=== PATIENT | male | born 1970 | race Caucasian/White ===

== ENCOUNTER 2022-04-11 19:06 | Emergency (ER) | payer BC ==
[~2022-04-11] VITALS: Ht 185.4 cm; Wt 97.5 kg
[2022-04-11] MEDS ORDERED: CIPRO500 MG PO (22:32)
[2022-04-11] MEDS ORDERED: KETO10TA2 PO (22:32)
== END 2022-04-11 22:50 | disposition home or self-care (01) ==
LOC: ER 19:06
DX: S61.412A Laceration without foreign body of left hand, initial encounter (principal); Y28.0XXA Contact with sharp glass, undetermined intent, initial encounter; Y93.89 Activity, other specified; Y92.59 Other trade areas as the place of occurrence of the external cause